=== PATIENT | male | born 1980 | race Caucasian/White ===

== ENCOUNTER → 2018-02-28 | Outpatient (CLI) | payer BC | LOC: COL.RAD 09:02 | DX: M25.511 Pain in right shoulder (principal) | CPT/HCPCS: J3301; Q9967 ==

== ENCOUNTER → 2022-07-21 | Outpatient (CLI) | payer BC | LOC: COL.RAD 11:07 | DX: R31.0 Gross hematuria (principal) | CPT/HCPCS: Q9967 ==

== ENCOUNTER → 2024-05-15 | Outpatient (CLI) | payer BC ==
[~2024-05-15] MED LIST: Gadoterate 5 ML VIAL IV ONE; Iohexol 300 - 10 ML VIAL IV ONE
== END ==
LOC: COL.RAD 08:49
DX: M24.851 Other specific joint derangements of right hip, not elsewhere classified (principal)
CPT/HCPCS: A9575; Q9967